=== PATIENT | female | born 1955 | race Caucasian/White ===

== ENCOUNTER 2017-11-17 14:57 | Emergency (ER) | payer BC, SELFPAY ==
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
== END 2017-11-17 16:05 | disposition left against medical advice (07) ==
LOC: ER 14:57
DX: Z53.21 Procedure and treatment not carried out due to patient leaving prior to being seen by health care provider (principal)
CPT/HCPCS: 82962; 99281

== ENCOUNTER 2019-06-15 10:10 | Inpatient (IN) | payer SELFPAY ==
[2019-06-15] MEDS ORDERED: CLINDAMYCIN 900MG/D5W 900 MG/50 ML IVPB IV ONE (11:52)
[2019-06-15] MEDS ORDERED: PIPER/TAZO/NS 3.375gm 3.375 GM/100 ML BAG ONE (11:53)
[2019-06-15] MEDS ORDERED: VANCOMYCIN/NS 1 gm 1 GM/250 ML BAG IV ONE (12:00)
[2019-06-15 12:52] LABS: Absolute Lymphocytes (CBC) 0.9 K/uL (0.7-4.9); Basophils % 1.2 % (0-1.3); Hematocrit 21.4 % (36.0-45.0); Lymphocytes % 7.2 % (15.3-44.8); MPV 8.9 fL (7.6-11.3); RBC Red Blood Cell Count 2.52 M/uL (3.86-4.86)
[2019-06-15 13:01] LABS: Protime INR 1.18
--- NOTE | 2019-06-15 13:01 | RAD REPORT ---
EXAM DESCRIPTION: RAD - Foot Left 3 View - 06/15/2019 12:46 pm CLINICAL HISTORY: gangrene COMPARISON: No comparisons FINDINGS: Bony destructive changes are seen involving the second toe predominantly. There is also ev idence of involvement of the proximal first toe as well as the third toe. Soft tissues are thickened with gas present in the soft tissues. Findings are compatible with a foot infection with osteomyeliti s.
--- NOTE | 2019-06-15 13:01 | RAD REPORT ---
EXAM DESCRIPTION: RAD - Chest Single View - 06/15/2019 12:46 pm CLINICAL HISTORY: weakness Chest pain. COMPARISON: No comparisons FINDINGS: Portable technique limits examination quality. The lungs are grossly clear. The heart is normal in size. No displaced fractures. IMPRESSION: No acute intrathoracic process suspected.
[2019-06-15 13:15] LABS: Albumin 1.8 g/dL (3.4-5.0); Bilirubin Direct 0.1 mg/dL (0-0.2); Bilirubin Total 0.5 mg/dL (0.2-1.0); Potassium 3.8 mmol/L (3.5-5.1); Protein, Total 6.1 g/dL (6.4-8.2)
[2019-06-15] MEDS ORDERED: NA CHLORIDE 0.9% 1,000 ML ONE (13:21)
[2019-06-15 14:03] LABS: Urine Bacteria >50 /HPF (<20)
[2019-06-15 14:04] LABS: Urine Blood 3+ (NEG); Urine Glucose 2+ (NEG); Urine Protein 2+ (NEG); Urine Specific Gravity 1.025 (1.005-1.030)
[2019-06-15 14:04] LABS: Urine Culture Reflex Order NOT NEEDED; Urine Yeast PRESENT (NONE SEEN); Urine Yeast with Hyphae PRESENT
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
[2019-06-15] MEDS ORDERED: ACETAMINOPHEN 500 MG TAB PO PRN (16:17)
[2019-06-15] MEDS: INSULIN -REGULAR HUMAN 50 UNIT/0.5 ML ML SQ SCH ×2 (16:30→23:26)
--- NOTE | 2019-06-15 18:03 | P.HP ---
Certification for Inpatient Patient admitted to: Inpatient With expected LOS: >2 Midnights Patient will require the following post-hospital care: None Practitioner: I am a practitioner with admitting privileges, knowledge of patient current condition, hospital course, and medical plan of care. Services: Services provided to patient in accordance with Admission requirements found in Title 42 Section 412.3 of the Code of Federal Regulations Patient History Date of Service: 06/15/19 Primary Care Provider: Jose Reason for admission: Foot Infection History of Present Illness: This is a 64-year-old female with significant past medical history of hypertension, diabetes uncontrolled, TBI, who currently does not take any medication who presented to the ED complaining of having left foot infection. Family at bedside stated that patient was recently seen at [facility] and was told that she had gangrene which requires foot amputation however patient left AMA and since then has been getting progressively worse. Patient also has been having fever chills at the house. Patient's at bedside states that this all started about 1 month ago when she started taking her leg with I broached the stairs and was going out of the house without her shoes on. Initially patient's leg started swelling and then they started noticing that she had open wounds that were draining foul-smelling drainage. Patient was prescribed oral antibiotics by primary care doctor initially however did not follow up with primary care doctor. After which the presented to the [facility] from where she left AMA as well. Then she presented to the hospital here today complaining of having fever chills pain in her left foot along with foul-smelling discharge. In the ER patient was seen and evaluated and was found to have severe wet gangrene as left foot infection and thus was admitted to the hospital for further care. Allergies No Known Allergies Allergy (Unverified 11/17/17 16:08) Home medications list reviewed: Yes - Past Medical/Surgical History Has patient received pneumonia vaccine in the past: No Diabetic: Yes -: HTN -: Diabetes Past Surgical History: Reviewed- Non-Contributory - Family History Family History: Reviewed- Non-Contributory - Social History Smoking Status: Light Tobacco smoker (1-9 cigarettes/day) Smoking therapy provided: Yes Patient receptive to therapy: Yes Alcohol use: No CD- Drugs: No Caffeine use: No Place of Residence: Home Review of Systems 10-point ROS is otherwise unremarkable Physical Examination - Physical Exam General: Alert, In no apparent distress HEENT: Atraumatic, PERRLA, Mucous membr. moist/pink, EOMI, Sclerae nonicteric Neck: Supple, 2+ carotid pulse no bruit, No LAD, Without JVD or thyroid abnormality Respiratory: Clear to auscultation bilaterally, Normal air movement Cardiovascular: Regular rate/rhythm, Normal S1 S2 Gastrointestinal: Normal bowel sounds, No tenderness Musculoskeletal: Other (Please see the Wound Care note for the picture of the left foot gangrene) Integumentary: No rashes Neurological: Normal speech, Normal tone Lymphatics: No axilla or inguinal lymphadenopathy - Studies Laboratory Data (last 24 hrs) 06/15/19 12:32: WBC 12.9 H, Hgb 7.3 L*, Hct 21.4 L, Plt Count 424 H 06/15/19 12:32: Sodium 137, Potassium 3.8, BUN 10, Creatinine 1.09, Glucose 242 H, Total Bilirubin 0.5, AST 8 L, ALT 8 L, Alkaline Phosphatase 80 06/15/19 12:25: PT 13.8 H, INR 1.18 Assessment and Plan - Problems (Diagnosis) (1) Gangrene of left foot Current Visit: Yes Status: Acute Plan: Left foot wet gangrene infection, most likely secondary to noncompliance with medication -wound cultures and blood cultures collected -IV vancomycin and Zosyn at this time -foot x-ray consistent with foot osteomyelitis -will get MRI of the foot done -general surgery is consulted. Awaiting recommendations -wound care was also consulted appreciated recommendations -will get ultrasound DVT and arterial ultrasound and (2) Osteomyelitis Current Visit: Yes Status: Acute Plan: Acute osteomyelitis of the left foot -x-ray consistent with osteomyelitis -IV antibiotics vancomycin and Zosyn at this time -will continue to monitor patient closely here in the hospital -patient will need a PICC line placement and long-term IV antibiotics if she does not agree to amputation. Qualifiers: Osteomyelitis type: acute hematogenous Osteomyelitis location: foot Laterality: left Qualified Code(s): M86.072 - Acute hematogenous osteomyelitis , left ankle and foot (3) Uncontrolled diabetes mellitus Current Visit: Yes Status: Chronic Plan: Will start patient on insulin sliding scale and Accu-Cheks Qualifiers: Diabetes mellitus type: type 2 Glycemic state: with hyperglycemia Qualified Code(s): E11.65 - Type 2 diabetes mellitus with hyperglycemia (4) Hypertension Current Visit: Yes Status: Chronic Qualifiers: Hypertension type: essential hypertension Qualified Code(s): I10 - Essential (primary) hypertension (5) TBI (traumatic brain injury) Current Visit: Yes Status: Chronic Qualifiers: Encounter type: sequela Loss of consciousness presence/duration: without LOC Qualified Code(s): S06.9X0S - Unspecified intracranial injury without loss of consciousness, sequela - Plan Admit patient to the hospital for IV antibiotics and general surgery consultation. Patient will need amputation however currently reluctant to make that decision. Will continue with IV antibiotics and follow up with wound cultures. Discharge Plan: Home Plan to discharge in: Greater than 2 days - Advance Directives Does patient have a Living Will: No Does patient have a Durable POA for Healthcare: No - Code Status/Comfort Care Code Status Assessed: Yes Critical Care: No
[2019-06-15 18:47] VITALS: BMI 25.1
[2019-06-15] MEDS: PIPER/TAZO/NS 3.375gm 3.375 GM/100 ML BAG IVPB SCH (18:49)
[2019-06-15] MEDS: NA CHLORIDE 0.9% 1,000 ML IV SCH (18:50)
[2019-06-15] MEDS ORDERED: POTASSIUM CL SA 10 MEQ TAB PO ONE (19:32)
--- NOTE | 2019-06-15 22:24 | RAD REPORT ---
EXAM DESCRIPTION: US - Extrem Venous W Compress Osiel - 06/15/2019 10:02 pm CLINICAL HISTORY: PAD Bilateral leg edema and swelling. COMPARISON: No comparisons TECHNIQUE: Real-time sonographic interrogation of the left and right lower extremity deep venous sys tems was performed. FINDINGS: Normal compressibility, flow augmentation, phasic flow and spontaneous flow is identified in both the left and right lower extremity deep venous systems. IMPRESSION: No sonographic evidence of left or right lower extremity deep venous thrombosis.
[2019-06-16] MEDS ORDERED: VANCOMYCIN 1.5 GM in NA CHLORIDE 0.9% 500 ML IVPB SCH ×2
--- NOTE | 2019-06-16 01:08 | CON ---
Date of Consultation: 06/15/2019 Brief History Of Present Illness: The patient is a 64-year-old female with a past medical history of hypertension, uncontrolled diabetes, possible traumatic brain injury history, who currentl y does not take any medications, who presents to the ER complaining of left foot infection. Her fami ly brought her to [facility] recently, was told that she had gangrene, which required a foot amp utation and she left AMA from the ER at that time as she states she refused to have any surgery. As such, she came to this emergency room, which is the first time she has ever been here, she was appare ntly accompanied by family. They were not present at the bedside. Whenever I spoke to the patient, she states that she has an infection of the foot, it has been there for several months. She has not done anything to manage this or treat it in any form of fashion and when the patient discovered that I was a surgeon she stated that she did not want any surgical intervention even if it meant her . Past Medical History: Significant for hypertension, diabetes. Past Surgical History: She denies. Social History: Smoking, she is approximately half a pack per day smoker. She denies alcohol or rec reational drug use. Allergies: NO KNOWN DRUG ALLERGIES. Home Medications: None were taken. Review of Systems: A 10-point review of systems other than HPI, denies. Physical Examination: Vital Signs: At the time of my examination, her vital signs were temperature 98.2, pulse 77, respira tory rate 16, blood pressure 120/63, SpO2 of 97% on room air. General: The patient is awake, alert, and oriented. She is oriented to person, place, time and even t. She has insight into some of her medical history and appears to have capacity to answer questions appropriately and seems to be oriented without any evidence of dementia that is obvious during my ex am. HEENT: She is otherwise normocephalic. Her sclerae are anicteric. Her mucous membranes are moist. Her oropharynx is clear. She has poor dentition. Neck: Supple. No JVD. Chest: Normal expansion and excursion. Extremities: Focused examination of the lower extremity, she has a grossly gangrenous left lower ext remity with multiple toes that are black and have various forms of wet and dry gangrene, predominantl y wet gangrene extending up to the mid foot and up to the ankle. There are cellulitic changes to the entire foot extending up beyond the foot into the lower extremity. The wounds extend to the proxima l dorsal aspect of the foot. They are foul smelling and obviously infected with purulent discharge. Laboratory Data: She had a laboratory examination, which revealed a white blood cell count of 12.9, hemoglobin 7.3, hematocrit of 21.4, platelet count is 424, neutrophils are 84%. Her PT is 13.8, INR 1.18. Sodium is 137, potassium 3.8, chloride 104 carbon dioxide 27, BUN 10, creatinine 1.09, glucose is 242. Lactic acid was 1.0. Her total bilirubin was 0.5, her AST 8, ALT 8, alkaline phosphatase 8 0, procalcitonin 0.08. Her UA was grossly infected with white blood cells, squamous cells, bacteria greater than 50, yeast present. She had imaging performed as well, which included a chest x-ray whic h was officially read as no acute intrathoracic process suspected. She had an x-ray of the left foot as well, which officially read as bony destructive changes are seen involving the second toe predomi nantly. There is also evidence of involvement of the proximal first toe as well as third toe. Soft tissues were thickened with gas present in the soft tissue. Findings compatible with foot infection with osteomyelitis. Assessment And Plan: This is a 64-year-old female, who presents with active gangrenous, infected lef t lower extremity foot toes, extending to be on the mid foot with cellulitic changes extending up the leg. 1.IV fluid hydration. 2.Antibiotic coverage. 3.I have recommended [id number] amputation as there were multiple large open gaping wounds with obvious infection and necrosis involving the mid foot, the toes, and web spaces and I have highly str essed the need for surgical intervention and the intervention I have recommended would be a below-the -knee amputation as it looks like a significant infection that is unlikely to be treated with any mor e minimalistic approach with respect to the amputation and as such I have recommended a [id number] e amputation. The patient stated to me that she refused to have any form of amputation even beginnin g with toes, but much more she refuses amputation of the foot and any other amputations of any kind. I have explained that she will likely get worse infection and can from this and likely will from this rapid infection and gangrenous changes. They will likely extend up her body and cause brigette re sepsis and septic shock. She stated to me that she would rather than have any form of amputat ion and as such, she has told me that she will not allow me to touch her or do any surgical intervent ion whatsoever and has asked me to not be involved in her care. As such, I will sign off on the case at this time and I have spoken to Dr. Isabella Collado regarding this and explained that the patient gruber s refused my surgical intervention at this time. I have been informed that she does not have any sta ndard medical power of divorce attorney and as such she seems to have capacity to make decisions for herself and as such, I will respect her decision. Please feel free to call me back should the patient change her mind or if you have additional questions regarding my involvement in this case, I will be happy to come back and consult and help the patient. If at all possible, I recommend therefore we continue with IV antibiotics and wound care with Santyl and Dakin solution to try to control the infection as much as possible with nonoperative measures, although I have explained again that this is likely to be unsuccessful. Thank you for this interesting consult. RAY Voice ID: [id number] Report ID: [id number]
[2019-06-16 01:57] VITALS: O2SAT 99
[2019-06-16] MEDS ORDERED: ONDANSETRON 4 MG/2 ML VIAL IV PRN (02:53)
[2019-06-16] MEDS ORDERED: MORPHINE 2 MG/ML SYR IV PRN (02:54)
[2019-06-16] MEDS: PIPER/TAZO/NS 3.375gm 3.375 GM/100 ML BAG IVPB SCH ×2 (03:30→08:47)
[2019-06-16 04:48] VITALS: BP 115/55; TEMP 98
[2019-06-16 06:11] LABS: Absolute Lymphocytes (CBC) 0.9 K/uL (0.7-4.9); Basophils % 2.3 % (0-1.3); Hematocrit 21.1 % (36.0-45.0); Lymphocytes % 10.7 % (15.3-44.8); MPV 8.8 fL (7.6-11.3); RBC Red Blood Cell Count 2.47 M/uL (3.86-4.86)
[2019-06-16 06:24] LABS: Magnesium 1.7 mg/dL (1.8-2.4); Phosphorus 2.3 mg/dL (2.5-4.9)
--- NOTE | 2019-06-16 06:30 | EKG ---
Test Date: 2019-06-15 Test Time: 13:34:33 Mds Coordinator: ZENON MEASUREMENT RESULTS: Intervals: Rate: 66 [place]: 134 QRSD: 76 QT: 442 QTc: 463 [place]: P: 64 [place]: 134 QRS: 19 T: 41 INTERPRETIVE STATEMENTS: Normal sinus rhythm Normal ECG Compared to ECG 08/19/1999 13:06:00 No significant changes Electronically Signed On 06-16-19 06:29:48 CDT by Yamil Londono
[2019-06-16 06:33] LABS: Albumin 1.7 g/dL (3.4-5.0); Bilirubin Total 0.4 mg/dL (0.2-1.0); Potassium 4.1 mmol/L (3.5-5.1); Protein, Total 5.7 g/dL (6.4-8.2)
[2019-06-16] MEDS: INSULIN -REGULAR HUMAN 50 UNIT/0.5 ML ML SQ SCH (07:30)
--- NOTE | 2019-06-16 08:19 | RAD REPORT ---
EXAM DESCRIPTION: US - Lower Extremity Arterial Bilat - 06/16/2019 8:02 am CLINICAL HISTORY: PAD Leg pain COMPARISON: No comparisons TECHNIQUE: Bilateral lower extremity arterial Doppler examination was performed with waveform tracin g and ankle brachial pressure measurements. FINDINGS: Symmetric brachial pressure measurements are noted. Right lower extremity arterial system including the common femoral artery, superficial femoral artery , popliteal artery, posterior tibial and dorsalis pedis artery is triphasic. Left lower extremity art erial system including the common femoral artery, superficial femoral artery and popliteal artery is triphasic to biphasic. Left posterior tibial artery and dorsalis pedis artery is monophasic. Right ankle brachial index measures 1.2, normal. Left ankle brachial index measures 1.2, normal. IMPRESSION: Moderate distal peripheral vascular disease is seen on the left involving the infrapopli teal vessels.
[2019-06-16] MEDS ORDERED: COLLAGENASE 30 GM OINTMENT TOP SCH (09:00)
[2019-06-16] MEDS ORDERED: SODIUM HYPOCHLORITE 0.5% 473 ML TOP SCH (09:00)
[2019-06-16] MEDS ORDERED: SODIUM HYPOCHLORITE 0.25% 473 ML TOP SCH (09:00)
[2019-06-16] MEDS: NA CHLORIDE 0.9% 1,000 ML IV SCH (11:00)
--- NOTE | 2019-06-16 13:22 | P.DS ---
Admission Date: 06/15/19 Discharge Date: 06/16/19 Primary Care Provider: Jose Disposition: AMA-LEFT AGAINST MEDICAL ADVIC Reason for Admission: Foot Infection Consultations: General surgery - Problems (1) Gangrene of left foot Status: Acute (2) Osteomyelitis Status: Acute Qualifiers: Osteomyelitis type: acute hematogenous Osteomyelitis location: foot Laterality: left Qualified Code(s): M86.072 - Acute hematogenous osteomyelitis , left ankle and foot (3) Uncontrolled diabetes mellitus Status: Chronic Qualifiers: Diabetes mellitus type: type 2 Glycemic state: with hyperglycemia Qualified Code(s): E11.65 - Type 2 diabetes mellitus with hyperglycemia (4) Hypertension Status: Chronic Qualifiers: Hypertension type: essential hypertension Qualified Code(s): I10 - Essential (primary) hypertension (5) TBI (traumatic brain injury) Status: Chronic Qualifiers: Encounter type: sequela Loss of consciousness presence/duration: without LOC Qualified Code(s): S06.9X0S - Unspecified intracranial injury without loss of consciousness, sequela Brief History of Present Illness: This is a 64-year-old female with significant past medical history of hypertension, diabetes uncontrolled, TBI, who currently does not take any medication who presented to the ED complaining of having left foot infection. Family at bedside stated that patient was recently seen at [facility] and was told that she had gangrene which requires foot amputation however patient left AMA and since then has been getting progressively worse. Patient also has been having fever chills at the house. Patient's at bedside states that this all started about 1 month ago when she started taking her leg with I broached the stairs and was going out of the house without her shoes on. Initially patient's leg started swelling and then they started noticing that she had open wounds that were draining foul-smelling drainage. Patient was prescribed oral antibiotics by primary care doctor initially however did not follow up with primary care doctor. After which the presented to the [facility] from where she left AMA as well. Then she presented to the hospital here today complaining of having fever chills pain in her left foot along with foul-smelling discharge. In the ER patient was seen and evaluated and was found to have severe wet gangrene as left foot infection and thus was admitted to the hospital for further care. Hospital Course: Patient refused all the treatment option here in the hospital including surgical procedure along with IV antibiotics. Patient decided to leave the hospital AMA. Patient was educated extensively regarding the risks of leaving the hospital against medical advise given the acute osteomyelitis and infection. Patient did develop aware of her situation however this is her life Andis to make decisions for herself and would like to leave the hospital AMA that she does not want to have any treatment done at this time. Vital Signs/Physical Exam: Temp Pulse Resp BP Pulse Ox 98 F 72 18 115/55 L 98 06/16/19 04:00 06/16/19 04:00 06/16/19 04:00 06/16/19 04:00 06/16/19 04:00 General: Alert, In no apparent distress HEENT: Atraumatic, PERRLA, EOMI Neck: Supple, JVD not distended Respiratory: Clear to auscultation bilaterally, Normal air movement Cardiovascular: Regular rate/rhythm, Normal S1 S2 Gastrointestinal: Normal bowel sounds, No tenderness Musculoskeletal: Erythema, Tenderness, Warmth Integumentary: No rashes, Diabetic ulcer, Pressure ulcer Neurological: Normal speech, Normal tone, Normal affect Lymphatics: No axilla or inguinal lymphadenopathy Laboratory Data at Discharge: WBC 8.5 K/uL (4.3-10.9) D 06/16/19 05:50 Hgb 7.3 g/dL (12.0-15.0) L* 06/16/19 05:50 Hct 21.1 % (36.0-45.0) L 06/16/19 05:50 Plt Count 403 K/uL (152-406) 06/16/19 05:50 PT 13.8 SECONDS (9.5-12.5) H 06/15/19 12:25 INR 1.18 06/15/19 12:25 Sodium 139 mmol/L (136-145) 06/16/19 05:50 Potassium 4.1 mmol/L (3.5-5.1) 06/16/19 05:50 BUN 13 mg/dL (7-18) 06/16/19 05:50 Creatinine 1.10 mg/dL (0.55-1.3) 06/16/19 05:50 Glucose 172 mg/dL (74-106) H 06/16/19 05:50 Phosphorus 2.3 mg/dL (2.5-4.9) L 06/16/19 05:50 Magnesium 1.7 mg/dL (1.8-2.4) L 06/16/19 05:50 Total Bilirubin 0.4 mg/dL (0.2-1.0) 06/16/19 05:50 AST 12 U/L (15-37) L 06/16/19 05:50 ALT 9 U/L (12-78) L 06/16/19 05:50 Alkaline Phosphatase 79 U/L (45-117) 06/16/19 05:50 Home Medications: NK [No Home Meds] 06/16/19
[2019-06-17] MEDS ORDERED: VANCOMYCIN 1.5 GM in NA CHLORIDE 0.9% 500 ML IVPB SCH ×2
--- OUTSIDE RECORDS SUMMARY | 2019-06-27 15:01 | XMS REPORT ---
:1955 [facility] Address [address] [place] [address] [address] [place] [address] Care Team Providers Name Role Phone Unavailable Unavailable Unavailable Problems This patient has no known problems. Allergies, Adverse Reactions, Alerts This patient has no known allergies or adverse reactions. Medications This patient has no known medications. Encounters Start End Encounter Admission Attending Care Care Encounter Date/Time Date/Time Type Type Clinicians Facility Department ID 2018-07-18 Inpatient E [facility] [id number] 02:58:00
== END 2019-06-16 11:26 | disposition left against medical advice (07) | DRG 300 ==
LOC: ER 10:10 → ERHOLD 14:45 → 2ND 16:54
PROVIDERS: ADMIT Family Medicine; ATTEND Family Medicine
DX: E11.52 Type 2 diabetes mellitus with diabetic peripheral angiopathy with gangrene (principal); I96 Gangrene, not elsewhere classified; M86.072 Acute hematogenous osteomyelitis, left ankle and foot; E11.65 Type 2 diabetes mellitus with hyperglycemia; I10 Essential (primary) hypertension; Z87.820 Personal history of traumatic brain injury; Z53.29 Procedure and treatment not carried out because of patient's decision for other reasons; F17.210 Nicotine dependence, cigarettes, uncomplicated
CPT/HCPCS: 36415; 71045; 80048; 80053; 80076; 81003; 81015; 82550; 82947; 83605; 83735; 84100; 84145; 85025; 85610; 86140; 87040; 87070; 87077; 87086; 87088; 87186; 87205; 93005; 93925; 93970; 96361; 96365; 96367; 99251; 99285; J2270; J2405; J2543; J3370; J3590; J7030; J7040